=== PATIENT | female | born 1945 | race Caucasian/White ===

== ENCOUNTER → 2016-04-08 | Outpatient (CLI) | payer MEDICARE | LOC: COL.RAD 07:55 | DX: I82.C11 Acute embolism and thrombosis of right internal jugular vein (principal); C25.1 Malignant neoplasm of body of pancreas ==

== ENCOUNTER → 2016-06-23 | Outpatient (CLI) | payer MEDICARE | LOC: COL.RAD 06:51 | DX: R91.8 Other nonspecific abnormal finding of lung field (principal) | CPT/HCPCS: Q9967 ==

== ENCOUNTER → 2016-06-30 | Outpatient (CLI) | payer MEDICARE | LOC: SUN.DIA 10:20 | DX: E11.40 Type 2 diabetes mellitus with diabetic neuropathy, unspecified (principal); E11.319 Type 2 diabetes mellitus with unspecified diabetic retinopathy without macular edema; E11.65 Type 2 diabetes mellitus with hyperglycemia; E66.9 Obesity, unspecified; Z68.42 Body mass index [BMI] 45.0-49.9, adult; Z71.3 Dietary counseling and surveillance; E78.5 Hyperlipidemia, unspecified; I10 Essential (primary) hypertension; E03.9 Hypothyroidism, unspecified | CPT/HCPCS: G0108 ==